=== PATIENT | female | born 1955 | race Caucasian/White ===

== ENCOUNTER 2019-08-30 06:52 | Inpatient (IN) | payer OTHER ==
[2019-08-14 11:14] LABS: URINE BILIRUBIN NEGATIVE (Negative); URINE BLOOD NEGATIVE (Negative); URINE CLARITY CLEAR; URINE COLOR YELLOW; URINE GLUCOSE-RANDOM* NEGATIVE (Negative); URINE KETONES NEGATIVE (Negative); URINE LEUKOCYTES-REFLEX 1+ (Negative); URINE NITRITE-REFLEX NEGATIVE (Negative); URINE PROTEIN (DIPSTICK) NEGATIVE (Negative); URINE SPECIFIC GRAVITY <= 1.005 (1.005-1.035); URINE UROBILINOGEN 0.2 E.U./dl (0.2-1.0)
[2019-08-14 11:15] LABS: HEMATOCRIT 41.7 % (37.0-47.0); HEMOGLOBIN 13.7 gm/dL (12.0-15.0); MCH 30.2 pg (26.0-34.0); MCHC 32.8 g/dL (28.0-37.0); MCV 92.2 fL (80.0-100.0); RBC 4.53 mil/uL (4.20-5.00); RDW 15.1 % (10.5-14.5); WBC 4.9 thou/uL (4.0-11.0)
[2019-08-14 11:26] LABS: ALBUMIN 3.9 g/dL (3.4-5.0); CALCIUM 8.8 mg/dL (8.5-10.1); CREATININE 0.7 mg/dL (0.6-1.0); POTASSIUM 4.2 mmol/L (3.5-5.1)
[2019-08-14 11:27] LABS: PROTIME 10.1 Seconds (9.3-11.4)
[2019-08-14 11:29] LABS: SQUAMOUS 4-10 Moderate /LPF (0-3)
[2019-08-14 11:30] LABS: BACTERIA-REFLEX 1-9 Few /HPF (None Seen); CASTS None Seen /LPF (None Seen); CRYSTALS None Seen /LPF (None Seen); URINE RBC None Seen /HPF (0-2); URINE WBC-REFLEX 0-5 Rare /HPF (0-5)
[~2019-08-30] VITALS: Ht 165.1 cm; Wt 109.3 kg
[~2019-08-30 06:52] MED LIST: ACETAMINOPHEN-1 EAC1 PO; ACETAMINOPHEN-CO5 ML PO; ACYCLOVIR 200200 MG PO; ALAVERT10 MG PO; ASPIRIN EC81 M1 PO; B-121000 MCG PO; BENEFIBER PO; BENEFIBER1 G2 PO; CALCIUM + VIT1 EACH PO; CALCIUM 600 WI1 EAC2 PO; CARVEDILOL12.5 MG PO; CENTRUM FLAVOR1 EAC1 PO; CHILDREN'S ASPI81 M1 PO; CLARITIN10 MG PO; COZAAR 25 MG TA25 M1 PO; FISH OIL GUMMI1 EAC1 PO; FOSAMAX 70 MG T70 MG PO; HYDROCODONE-ACE10 ML PO; KEFLEX250 M1 PO; LEVOTHYROXIN0.112 M1 PO; LEVOXYL137 MCG PO; LOPRESSOR25 PO; MELATONIN5 M6 PO; METOPROLOL SUCC25 M1 PO; MIRTAZAPINE15 M2 PO; MULTIVITAMINS PO; MULTIVITAMINS1 EACH PO; NYSTATIN1 EA10; OMEPRAZOLE40 MG PO; PRAVACHOL40 MG PO; PRAVASTATIN SOD20 MG PO; PROBIOTIC1 EAC7 PO; UREA CREAM 40%1 TUB1 TOP; VITAMIN B122500 MC1 PO; VITAMIN D1000 UNI1 PO; VITAMIN D22000 UNIT PO; VITAMIN D5000 UNIT PO; [UNRECOGNIZED DRUG - OTHER] TOP
[2019-08-30 12:00] VITALS: BP 157/82
--- NOTE | 2019-08-30 17:45 | NUR ---
PT RECEIVED TO RM 435 AT THIS TIME FROM REC RM ALERT AND IN NO ACUTE DISTRESS. PT SETTLED INTO BED AND ORIENTED TO THE UNIT. RT KNEE BRANDY DSNG DRY W/ POLAR POLINA IN PLACE. DENIES ANY PAIN AT THIS TIME. TAKING FLUIDS W/O NAUSEA. AT BEDIDE.
[2019-08-30 18:39] VITALS: BP 150/91
[2019-08-30 20:00] VITALS: BP 120/78
[2019-08-31 02:47] VITALS: BP 108/63
--- NOTE | 2019-08-31 04:24 | NUR ---
ADMISSION EDUCATION,HX AND ASSESSMENT COMPLETED.PT C/O PAIN ON HER KNEE,MANAGED WITH PO MED.DRSG ON HER HIP C/D/I WITH BRANDY DRSG.UP WITH I ASSIST AND WALKER TO BSC.POLAR POLINA IN PLACE,CHANGED NEEDED.PT RESTING ON HER BED AT THIS TIME.IVF AND IV ABX INFUSING ORDERED.FALL PRECAUTIONS IN PLACE,CALL LIGHT WITHIN REACH.
[2019-08-31 05:48] LABS: HEMATOCRIT 35.6 % (37.0-47.0); HEMOGLOBIN 11.8 gm/dL (12.0-15.0); MCH 30.6 pg (26.0-34.0); MCHC 33.2 g/dL (28.0-37.0); MCV 92.4 fL (80.0-100.0); RBC 3.86 mil/uL (4.20-5.00); RDW 14.8 % (10.5-14.5); WBC 9.6 thou/uL (4.0-11.0)
[2019-08-31 07:53] VITALS: BP 93/54
[2019-08-31] MEDS ORDERED: TRAMADOL 50 MG50 MG PO (12:00)
[2019-08-31] MEDS ORDERED: NEURONTIN 300300 M1 PO (12:02)
[2019-08-31] MEDS ORDERED: CHILDREN'S ASPI81 M1 PO (12:02)
--- NOTE | 2019-08-31 14:55 | NUR ---
PT ADMITTED RELATED TO RIGHT TOTAL KNEE. CM REVIEWED CHART AND SPOKE WITH CARE TEAM. PT INDICATED SHE RESIDES IN AN APARTMENT WITH HER SPOUSE WITH ELEVATOR ACCESS. PT INDICATED SHE HAD USED A CANE TO ASSIST WITH MOBILITY PROOF TECHNICIAN. PT INDICATED SHE HAS A QUAD CANE, FWW, WHEELCHAIR, AND BSC FOR HOME USE. PT INDICATED SHE HAD BEEN DOING OP PT AT [facility] PROOF TECHNICIAN BUT THAT SHE WANTS [facility] UPON ANTICPATED DC TOMORROW. REFERRAL WAS SENT AND [facility] CAN ACCEPT PT. CM TO FOLLOW INDICATED WITH DC PLANNING.
--- NOTE | 2019-08-31 15:00 | NUR ---
PT A&OX4, AMBULATES WITH ASSIST X1 AND WALKER. IV INFUSING FLUIDS IN R AC W/O COMPS. BRANDY DRSG AND POLAR PACK ARE INTACT TO R KNEE. TOLERATING TORDOL FOR PAIN.PLANS ARE FOR PT TO DC 09/01/19. CALL LIGHT W/I REACH.
--- NOTE | 2019-08-31 16:26 | NUR ---
FAXED REFERRAL TO [facility]. SPOKE WITH ANNA IN INTAKE. SHE REVIEWED REFERRAL AND SHE CAN ACCEPT AT [place]. DP TO FOLLOW.
[2019-08-31 17:21] VITALS: BP 134/64
[2019-08-31 18:37] VITALS: BP 90/47
--- NOTE | 2019-09-01 04:26 | NUR ---
ASSUMED PT CARE AT 1900. GIVEN PAIN MEDS FREQ TONIGHT. UP TO COMMODE, PT TOLERATED WELL. PT SALINE LOCKED AFTER FLUIDS FINISHED. RIGHT KNEE DRESSING LOOKS GOOD, INTACT AND DRY. PT SLEPT SOME THROUGHOUT NIGHT, NO OTHER SIGNIFICANT CHANGES.
[2019-09-01 06:07] LABS: HEMATOCRIT 33.2 % (37.0-47.0); HEMOGLOBIN 10.9 gm/dL (12.0-15.0); MCH 30.2 pg (26.0-34.0); MCHC 32.7 g/dL (28.0-37.0); MCV 92.5 fL (80.0-100.0); RBC 3.6 mil/uL (4.20-5.00); WBC 5.6 thou/uL (4.0-11.0)
[2019-09-01 07:20] VITALS: BP 108/56
[2019-09-01 09:53] VITALS: BP 108/56
[2019-09-01 13:18] VITALS: BP 108/56
--- NOTE | 2019-09-01 14:27 | NUR ---
PATIENT DISCHARGING TODAY 09/01/19 WITH [facility]. RAXED DC ORDERS AND SUMMARY. SPOKE WITH RAJENDRA IN INTAKE. SHE RECEIVED DC ORDERS AND WILL NOTIFY PATIENT OF TIME OF VISIT.
--- NOTE | 2019-09-01 14:30 | NUR ---
Assumed pt care at 7am.Pt in and out of chair to bsc with assist.Assessment completed.vss.Pt tolerated meds and diet.Pt c/o rt knee pain rated 10/10. Tramadol given twice this shift.Dr Mart academic assistant rounded on pt and dc order noted.Dc summary compile and reviewed with pt and spouse.Saline lock dc'd. At 1430,pt dc home in [place] with her spouse.
--- NOTE | 2019-09-06 14:33 | O ---
[facility] [place] [address] OPERATIVE REPORT Name: HAILEY ABERNATHY Og Room #: 435-P [facility] IN M.R.#: [id number] Admission: 08/30/19 Attend Phys: Eric Mart MD Discharge: 09/01/19 Date of : 51 Report #: [id number] THIS REPORT FOR: //name// CC: YFN PRICE Physician staff Eric Mart DATE OF SERVICE: 08/30/2019 PREOPERATIVE DIAGNOSES: 1. Right knee osteoarthritis. 2. Morbid obesity with a BMI of 40. POSTOPERATIVE DIAGNOSES: 1. Right knee osteoarthritis. 2. Morbid obesity with a BMI of 40. PROCEDURE: Right total knee arthroplasty using Navio robotic assistance. SURGEON: Eric Mart MD. SASH CLAMP OPERATOR: Cassy Payne PA-C. INDICATIONS FOR SASH CLAMP OPERATOR: Throughout the case, extensive retraction and manipulation of the knee was required. This was afforded to me by my assistant football coach. ANESTHESIA: LMA with an adductor canal block. IMPLANTS: Hernandez and Nephew size 4 Legion cobalt chrome posterior stabilized femur, size 4 tibia, size 11 highly constrained polyethylene, and size 32 patella. TOURNIQUET TIME: 60 minutes. ESTIMATED BLOOD LOSS: 25 mL. COMPLICATIONS: None. SPECIMENS: None. CONDITION UPON LEAVING THE OPERATING ROOM: Stable. INDICATIONS FOR PROCEDURE: The patient is a 64-year-old female with right knee osteoarthritis. She had failed conservative measures for this and after discussion with her, she elected for right total knee arthroplasty. [facility] [place] [address] OPERATIVE REPORT Name: HAILEY ABERNATHY Room #: 435-P [facility] IN M.R.#: [id number] Admission: 08/30/19 Attend Phys: Eric Mart MD Discharge: 09/01/19 Date of : 51 Report #: [id number] DESCRIPTION OF PROCEDURE: Risks, benefits, alternatives, and complications were discussed in detail with the patient including, but not limited to, risk of anesthesia, risk of damage to nerves, arteries, or blood vessels, risk for infection or bleeding, risk for continued knee pain, and need for reoperation. Informed consent was obtained from the patient. Right knee was appropriately marked in the preoperative holding area. IV Ancef was given for preoperative antibiotics. She was brought to the operating room and placed in the supine position on operating room table. LMA anesthesia was induced without complication. Tourniquet was placed on the right thigh. Right lower extremity was prepped and draped in normal sterile fashion. Timeout was performed, properly identifying the patient and procedure as well as the instrumentation and implants. All in the operating room were in agreement. Right lower extremity was exsanguinated and tourniquet was inflated. Tourniquet time was 60 minutes. Standard midline approach to knee was made with 10 blade through the skin. Dissection was taken down sharply to the fascia and deep flaps were developed medially and laterally. Fresh 10 blade was used to make a medial parapatellar arthrotomy and the knee was inspected. There was severe tricompartment osteoarthritis. ACL and PCL were removed sharply. Reference pins were placed in the femur and the tibia and the knee was digitally mapped using the Parudi robotic system. Intraoperative plan was made and we sized to a size 4 femur with the size 4 tibia and a 11 spacer. After acceptance of the intraoperative plan, the distal femoral cut was made with a Navio nimisha. The 4-in-1 cutting block for the size 4 femur was then placed on the distal femur and chamfer cuts were made. Attention was then turned to the tibia. Remainder of the menisci were removed with Bovie cautery. The tibial resection guide was pinned in place using the Navio for placement and tibial resection was made. After this, flexion and extension gaps were checked and found to have good balance in flexion and extension both medially and laterally with the 11 spacer. The tibia was sized and found to be a size 4. Size 4 tibial trial was placed and pinned and punched. Size 4 femoral trial was placed and box cut was made. This was then trialed with a size 11 polyethylene. Knee was taken through range of motion and found to have a moderate laxity laterally in flexion and it was felt we can make up for this with a constrained implant. After this, 9 mm was resected from the posterior surface of the patella and a size 32 patellar trial button was placed. Knee was taken through range of motion, found to be stable, and found to have good patellar tracking. Trial components were removed. Bony ends were thoroughly irrigated with normal saline. A final size 4 tibia, a size 4 Legion cobalt chrome posterior stabilized femur, and a size 32 patella were cemented in place using standard cementation techniques. While the cement cured, a periarticular injection consisting of morphine, ropivacaine, epinephrine, and Toradol was placed around the knee joint capsule. After the cement cured, tourniquet was deflated. Hemostasis was obtained with Bovie cautery. A final size 11 constrained polyethylene was placed. A gram of vancomycin was placed deep in the joint. The fascia was closed with 0 Vicryl, skin was closed with 2-0 Vicryl and skin staple, and a BRANDY dressing was [address] [address] OPERATIVE REPORT Name: HAILEY ABERNATHY Room #: 435-P [facility] IN M.R.#: [id number] Admission: 08/30/19 Attend Phys: Eric Mart MD Discharge: 09/01/19 Date of : 51 Report #: [id number] applied. The patient tolerated this procedure well and went to recovery room under care of anesthesia postoperatively. <ELECTRONICALLY SIGNED> By: Eric Mart MD 09/06/19 1433 1611 03 Eric Mart MD /nt
== END 2019-09-01 14:30 | disposition home health service (06) | DRG 470 ==
LOC: PRE 06:52 → 4S 10:22 → TBA 10:22 → PRE 10:24 → TBA 16:01 → 4S 18:37 → ENTRNSPT 09-01 14:38 → EDTRNSPTSTS 09-01 14:39
PROVIDERS: ADMIT Orthopaedic Surgery
PROC: 0SRC069 Replacement of Right Knee Joint with Oxidized Zirconium on Polyethylene Synthetic Substitute, Cemented, Open Approach (ICD-10-PCS; principal; 2019-08-30)
PROC: 8E0Y0CZ Robotic Assisted Procedure of Lower Extremity, Open Approach (ICD-10-PCS; principal; 2019-08-30)
DX: M17.11 Unilateral primary osteoarthritis, right knee (principal); Z68.41 Body mass index [BMI] 40.0-44.9, adult; E66.01 Morbid (severe) obesity due to excess calories; I10 Essential (primary) hypertension; E78.5 Hyperlipidemia, unspecified; K21.9 Gastro-esophageal reflux disease without esophagitis; G62.9 Polyneuropathy, unspecified; G89.29 Other chronic pain; Z88.2 Allergy status to sulfonamides; Z88.8 Allergy status to other drugs, medicaments and biological substances; Z88.6 Allergy status to analgesic agent; Z91.041 Radiographic dye allergy status
CPT/HCPCS: 10102; 50010; 50101; 50415; 50954; 51130; 51225; 51320; 51412; 52001; 52282; 53000; 53078; 53364; 56527; 56528; 57095; 57103; 57110; 57127; 57180; 62110; 62900; 64039; 64043; 70005

== ENCOUNTER → 2020-04-17 | Outpatient (CLI) | payer OTHER ==
[~2020-04-17] MED LIST changes: +ALCORTIN A GEL48 GM TOP; +KETOCONAZOLE15 GM TOP; +LEVOXYL150 MCG PO; +NEURONTIN 300300 M1 PO; +NEURONTIN 300M300 M2 PO; +PERIDEX15 ML SWISH&SPIT; +TRAMADOL 50 MG50 MG PO
== END ==
LOC: LAB 08:00
PROVIDERS: ATTEND Student in an Organized Health Care Education/Training Program
DX: Z01.812 Encounter for preprocedural laboratory examination (principal); Z11.59 Encounter for screening for other viral diseases

== ENCOUNTER 2020-04-22 11:21 | Inpatient (IN) | payer OTHER ==
[2020-04-17 14:14] LABS: URINE BILIRUBIN NEGATIVE (Negative); URINE BLOOD NEGATIVE (Negative); URINE CLARITY CLEAR; URINE COLOR YELLOW; URINE GLUCOSE-RANDOM* NEGATIVE (Negative); URINE KETONES NEGATIVE (Negative); URINE LEUKOCYTES-REFLEX TRACE (Negative); URINE NITRITE-REFLEX NEGATIVE (Negative); URINE PROTEIN (DIPSTICK) NEGATIVE (Negative); URINE SPECIFIC GRAVITY 1.015 (1.005-1.035); URINE UROBILINOGEN 0.2 E.U./dl (0.2-1.0)
[2020-04-17 14:15] LABS: HEMATOCRIT 38.3 % (37.0-47.0); HEMOGLOBIN 12.6 gm/dL (12.0-15.0); MCH 29.2 pg (26.0-34.0); MCV 88.7 fL (80.0-100.0); RBC 4.32 mil/uL (4.20-5.00); RDW 14.4 % (10.5-14.5); WBC 4.5 thou/uL (4.0-11.0)
[2020-04-17 14:24] LABS: ALBUMIN 3.8 g/dL (3.4-5.0); CALCIUM 8.6 mg/dL (8.5-10.1); CREATININE 0.7 mg/dL (0.6-1.0); POTASSIUM 4.2 mmol/L (3.5-5.1)
[2020-04-17 14:25] LABS: PROTIME 10.1 Seconds (9.3-11.4)
[~2020-04-22] VITALS: Ht 165.1 cm; Wt 104.3 kg
--- NOTE | ~2020-04-22 | O ---
[facility] [place] [address] [place] [address] OPERATIVE REPORT Name: HAILEY ABERNATHY Room #: 150-2 ADM IN M.R.#: [id number] Admission: 04/22/20 Attend Phys: Eric Mart MD Discharge: Date of : 51 Report #: [id number] THIS REPORT FOR: cc: YFN PRICE Physician not on staff Eric Mart MD ~ CC: YFN PRICE Physician staff Eric Mart DATE OF SERVICE: 04/22/2020 PREOPERATIVE DIAGNOSIS: Left knee osteoarthritis. POSTOPERATIVE DIAGNOSIS: Left knee osteoarthritis. PROCEDURE: Left total knee arthroplasty using Navio robotic surveyor's assistant. SURGEON: Eric Mart MD. MEAT STRINGER: Cassy Payne PA-C. INDICATIONS FOR MEAT STRINGER: Throughout the case, extensive retraction and manipulation of the knee was required. This was afforded to me by my surveyor's assistant. ANESTHESIA: LMA with adductor canal block. IMPLANTS: Hernandez and Nephew size 4 Journey II BCS cobalt chrome femur, size 3 tibia, size 10 polyethylene and size 32 patella. TOURNIQUET TIME: 53 minutes. ESTIMATED BLOOD LOSS: 50 mL. COMPLICATIONS: None. SPECIMENS: None. CONDITION UPON LEAVING THE OPERATING ROOM: Stable. INDICATIONS FOR PROCEDURE: The patient is a 64-year-old female with left knee osteoarthritis. She had failed conservative measures for this and after discussion with her, she elected for left total knee arthroplasty. DESCRIPTION OF PROCEDURE: Risks, benefits, alternatives, complications were discussed in detail with the patient including but not limited to risk of [facility] [address] [place] [address] OPERATIVE REPORT Name: HAILEY ABERNATHY Room #: 150-2 ADM IN M.R.#: [id number] Admission: 04/22/20 Attend Phys: Eric Mart MD Discharge: Date of : 51 Report #: [id number] anesthesia, risk of damage to nerves, arteries, blood vessels, risk for infection, bleeding, risk for continued knee pain, need for reoperation. Informed consent was obtained from the patient. Left knee was appropriately marked in the preoperative holding area. IV Ancef was given for preoperative antibiotics. She was brought to the operating room and placed in the supine position on the operating room table. LMA anesthesia was induced without complication. Tourniquet was placed on the left thigh. Left lower extremity was prepped and draped in normal sterile fashion. Timeout was performed properly identifying the patient, procedure as well as the instrumentation and implants. All in the operating room were in agreement. Left lower extremity was exsanguinated, tourniquet was inflated. Tourniquet time was 53 minutes. Standard midline approach to the knee was made with #10 blade through the skin. Dissection was taken down sharply to the fascia and deep flaps were developed medially and laterally. Fresh #10 blade was used to make a medial parapatellar arthrotomy and the knee was inspected. There was severe tricompartmental osteoarthritis. ACL and PCL were removed sharply. Reference pins were placed in the femur and the tibia and the knee was digitally mapped using the FloTime robotic system. Intraoperative plan was made and we sized the size 4 femur with a size 3 tibia and spacer. After acceptance of the intraoperative plan, the distal femoral cut was made with a Navio nimisha. Distal femoral cutting block was pinned in place and then the chamfer cuts were made. Attention was turned to the tibia. Remainder of the menisci removed with Bovie cautery. Tibial resection guide was pinned in place using the Navio for positioning and tibial resection was made. After this, flexion and extension gaps were checked and found to have good balance in flexion and extension both medially and laterally. Tibia was sized, found to be a size 3. A size 3 tibial trial was placed, pinned and punched. A size 4 femoral trial was placed and the box cut was made. This was then trialed with a size 10 polyethylene. Knee was taken through range of motion, found to be stable, found to have 1-2 mm of laxity medially and laterally, both digitally as well as manually. A 5 mm was resected from the posterior surface of the patella and a size 32 patellar trial button was placed. Knee was taken through range of motion, found to be stable, found to have good patellar tracking. Trial components were removed. Bony ends were thoroughly irrigated with normal saline. A final size 3 tibia, size 4 Journey II BCS cobalt chrome femur and a size 32 patella were cemented in place using standard cementation techniques. While the cement cured, a periarticular injection consisting of morphine, ropivacaine, epinephrine and Toradol was placed around the knee joint capsule. After the cement cured, the tourniquet was deflated. Hemostasis was obtained with Bovie cautery. Final size 10 polyethylene was placed. A gram of vancomycin was placed deep in the joint. Fascia was closed with 0 Vicryl, skin was closed with 2-0 Vicryl, skin staple and a BRANDY dressing [facility] [address] [place] [address] OPERATIVE REPORT Name: HAILEY ABERNATHY Room #: 150-2 [facility] IN M.R.#: [id number] Admission: 04/22/20 Attend Phys: Eric Mart MD Discharge: Date of : 51 Report #: [id number] was applied. The patient tolerated this procedure well and went to the recovery room under care of anesthesia postoperatively. By: [id number] Eric Mart MD /nt
[2020-04-22 13:10] VITALS: BP 172/81
[2020-04-22 18:36] VITALS: BP 147/84
[2020-04-22 21:08] VITALS: BP 166/71
--- NOTE | 2020-04-23 01:51 | NUR ---
ASSUMED PT CARE AT APPROX 1900.PT ALERT AND PLEASANT.ADMISSION HX,EDUCATION AND ASSESSMENT COMPLETED.PT DENIED PAIN.DRGS ON HER L KNEE C/D/I WITH POLAR PACK,SCD AND CONCEPCIÓN HOSE IN PLACE.PT EDUCATED ON HOW TO USE HER INCENTIVE SPIROMETER.GUZMAN CATH TO DD.PT ON 2L/NC FOR COMFORT.FIRST DOSE OF ABX ADMINISTERED.PT SLEEPING ON HER BED AT THOIS TIME.FALL PRECAUTIONS IN PLACE,CALL LIGHT WITHIN REACH.
[2020-04-23 06:46] LABS: HEMATOCRIT 37.2 % (37.0-47.0); HEMOGLOBIN 12.3 gm/dL (12.0-15.0); MCH 29.1 pg (26.0-34.0); MCV 88.3 fL (80.0-100.0); RBC 4.21 mil/uL (4.20-5.00); RDW 14.1 % (10.5-14.5); WBC 8.3 thou/uL (4.0-11.0)
[2020-04-23 08:31] VITALS: BP 108/56
[2020-04-23 09:28] VITALS: BP 108/56
--- NOTE | 2020-04-23 14:23 | NUR ---
ASSESSMENT: CM REVIEWED CHART AND SPOKE WITH PATIENT. PT IS ALERT AND ORIENTED X4. PT IS HERE DUE TO SURGERY ON LEFT KNEE. PT IS HAVING ISSUES WITH URINATION POST SURGERY. PT REPORTS SHE LIVES IN AN APT WITH THREE OTHER PEOPLE AND HAS ELEVATOR ACCESS. PT REPORTS SHE HAS A CANE AT HOME FOR AMBULATION AND ALSO HAS A WALKER. PT REPORTS HAVING [facility] IN THE PAST AND REPORTS WANTING TO USE THEM AGAIN. CONSULT RECEIVED FOR HH ARRANGEMENT AT DISCHARGE. REFERRAL SENT TO [facility]. PLANS OF POSSIBLE DISCHARGE TOMORROW WITH HH. PT REPORTS HER WORKS THE [employer] SO IF SHE DISCHARGES TOMORROW HE WILL BE UNABLE TO GET HER UNTIL THE AFTERNOON. CM WILL CONTINUE TO FOLLOW.
[2020-04-23 14:42] VITALS: BP 108/56
[2020-04-23 17:45] VITALS: BP 115/54
[2020-04-23 22:03] VITALS: BP 91/33
--- NOTE | 2020-04-23 23:30 | NUR ---
PT CARE ASSUMED AT 0700. A&Ox4. PT UP WITH PT TO THE RECLINER. GUZMAN REMOVED. IV PATENT WITH NO REDNESS OR EDEMA, IV FLUIDS INFUSING. PT TOLERATING PAIN WELL WITH PAIN MEDICATION ON BOARD. BRANDY DRESSING INTACT. POLAR PACK/SCD'S/CONCEPCIÓN HOSES IN PLACE. EDUCATION GIVEN ON BRANDY DRESSING AND POLAR PACK. INCENTIVE SPIROMETER ENCOURAGE AND PT USED THROUGHOUT THE DAY. PT WAS NOT ABLE TO URINATE AFTER GUZMAN REMOVAL. BLADDER SCANNED 193ML PRESENT. MD INFORMED. PT WAS ABLE TO URINATE ON HER OWN AT 1700. 350ML OUT. NO N/V PRESENT. FALL PROTOCOLL IN PLACE. CALL LIGHT IN REACH. WILL CONTINUE TO MONITOR. REPORT GIVEN TO ABAD ADEN
[2020-04-24 00:27] VITALS: BP 93/42
--- NOTE | 2020-04-24 05:49 | NUR ---
ASSUMED PT CARE AT 1940. PT IS A&O X4. PT IS UP WITH WALKER STANDBY WITH GAITBELT. PT TOOK MEDS PO. PT IS PLEASANT. PT CALLS OUT APPROPRIATELY. PT MOVES FROM BED TO CHAIR. PT IV IS PATENT WITH FLUIDS RUNNING. ORIGINAL DRESSING IN PLACE. ICE IN POLAR PACK REPLACED. PT VOIDING.PT RESTING IN ROOM.
[2020-04-24 06:31] LABS: HEMOGLOBIN 10.5 gm/dL (12.0-15.0); MCH 29.1 pg (26.0-34.0); MCHC 32.7 g/dL (28.0-37.0); MCV 89.1 fL (80.0-100.0); RBC 3.59 mil/uL (4.20-5.00); RDW 14.5 % (10.5-14.5); WBC 5.1 thou/uL (4.0-11.0)
[2020-04-24 07:50] VITALS: BP 119/57
--- NOTE | 2020-04-24 12:00 | NUR ---
PT CARE ASSUMED AT 0700.A&Ox4. PT UP IN THE RECLINER WITH NO COMPLAINTS OF PAIN. PAIN MANAGED WELL WITH PAIN MEDICATION ON BOARD. PATIENT CLEARED BY PT TO GO HOME. IV PATENT WITH NO REDNESS OR EDEMA, FLUIDS INFUSING. PT DOES NOT HAVE ANY FURTHER COMPLAINTS OF URINATING. CLEARED BY PT TO GO HOME WITH HOME HEALTH. INFORMED AND WAITING ON DISCHARGE ORDERS. BRANDY DRESSING/POLAR PACK INTACT AND IN PLACE. CONCEPCIÓN HOSES IN PLACE. FALL PROTOCOL IN PLACE. CALL LIGHT IN REACH. WILL CONTINUE TO MONITOR.
[2020-04-24 12:35] VITALS: BP 108/56
--- NOTE | 2020-04-24 13:16 | NUR ---
ON-GOING ASSESSMENT: PT HAS ORDERS TO LEAVE TODAY WITH HOME HEALTH. [facility] ACC[facility]PTED PT FOR HH SERVICES AND CM FAXED D/C ORDERS AND SUMMARY TO THEM, CONFIRMED THEY RECEIVED IT. CM ALSO NOTIFIED THEM OF DISCHARGE. PTS IS PROVIDING TRANSPORTATION HOME.
== END 2020-04-24 13:48 | disposition home health service (06) | DRG 470 ==
LOC: PRE 11:21 → 4S 12:21 → TBA 12:21 → PRE 13:07 → 4S 17:06
PROVIDERS: ADMIT Orthopaedic Surgery; ATTEND Orthopaedic Surgery
PROC: 0SRD0J9 Replacement of Left Knee Joint with Synthetic Substitute, Cemented, Open Approach (ICD-10-PCS; principal; 2020-04-22)
PROC: 8E0Y0CZ Robotic Assisted Procedure of Lower Extremity, Open Approach (ICD-10-PCS; principal; 2020-04-22)
PROC: 3E0T3BZ Introduction of Anesthetic Agent into Peripheral Nerves and Plexi, Percutaneous Approach (ICD-10-PCS; principal; 2020-04-22)
DX: M17.12 Unilateral primary osteoarthritis, left knee (principal); Z88.6 Allergy status to analgesic agent; Z88.1 Allergy status to other antibiotic agents; Z88.5 Allergy status to narcotic agent; Z88.8 Allergy status to other drugs, medicaments and biological substances; Z91.048 Other nonmedicinal substance allergy status; Z90.710 Acquired absence of both cervix and uterus; Z90.49 Acquired absence of other specified parts of digestive tract; Z85.3 Personal history of malignant neoplasm of breast
CPT/HCPCS: 10102; 50010; 50415; 50954; 51130; 51225; 51320; 51412; 52001; 52282; 53000; 53078; 53370; 56527; 56528; 57095; 57103; 57110; 57127; 57180

== ENCOUNTER → 2021-02-12 | Outpatient (CLI) | payer OTHER ==
[~2021-02-12] MED LIST changes: +COMBIVENT RESPIM4 GM INH; +ELIQUIS5 MG PO; +PERCOCET 7.5-31 EAC1 PO
== END ==
LOC: LAB 13:08
PROVIDERS: Orthopaedic Surgery Foot and Ankle Surgery; ATTEND Student in an Organized Health Care Education/Training Program
DX: Z01.812 Encounter for preprocedural laboratory examination (principal); Z20.822 Contact with and (suspected) exposure to COVID-19

== ENCOUNTER 2021-02-14 06:05 | Day surgery (SDC) | payer OTHER ==
[~2021-02-14] VITALS: Ht 167.6 cm; Wt 112.9 kg
[~2021-02-14 06:05] MED LIST changes: -PERCOCET 7.5-31 EAC1 PO
[2021-02-14 07:35] VITALS: BP 128/67
[2021-02-14] MEDS ORDERED: PERCOCET 7.5-31 EAC1 PO (09:08)
[2021-02-14 09:18] VITALS: BP 128/67
--- NOTE | 2021-02-19 15:58 | O ---
[facility] [place] [address] OPERATIVE REPORT Name: HAILEY ABERNATHY Room #: DEP [facility].#: [id number] Admission: 02/14/21 Attend Phys: Daniel Monterroso MD Discharge: 02/14/21 Date of : 51 Report #: [id number] THIS REPORT FOR: cc: YFN PRICE [facility] - Family physician unknown Daniel Monterroso MD ~ DOC #: [id number] Daniel Monterroso MD DATE OF SERVICE: 02/14/2021 PREOPERATIVE DIAGNOSES: 1. Left ankle impingement, status post left total ankle arthroplasty. 2. Left ankle loose bodies. POSTOPERATIVE DIAGNOSIS: 1. Left ankle impingement, status post left total ankle arthroplasty. 2. Left ankle loose bodies. PROCEDURES: 1. Left ankle anterior and posterior osteophyte excision. 2. Left ankle loose body excision and debridement. 3. Left ankle 4-0 cannulated screw placement prophylactic. SURGEON: Daniel Monterroso MD TRAFFIC COUNTER: None. ANESTHESIA: General. ESTIMATED BLOOD LOSS: 20 mL. DRAINS: No drains. TOURNIQUET TIME: One hour. DESCRIPTION OF PROCEDURE: The patient was brought to the operating room where she was placed under general anesthesia. Once under adequate general anesthesia, her left lower extremity was prepped and draped in a sterile manner. The extremity was elevated, exsanguinated, tourniquet placed 300 mmHg. A medial incision to the patient's previous scar was then made. This was dissected down through the soft tissue to the distal tibia and tibiotalar joint. This is dissected then posteriorly, dissecting along the bone and retracting the neurovascular bundle posteriorly. Exposure was made of the posterior osteophytes. These were then resected utilizing an osteotome and a rongeur to completely remove. This was verified under fluoroscopy. We then dissected anteriorly and made an incision anteriorly, exposing the ankle joint and [address] [address] OPERATIVE REPORT Name: HAILEY ABERNATHY Og Room #: DEP [facility] M..#: [id number] Admission: 02/14/21 Attend Phys: aDniel Monterroso MD Discharge: 02/14/21 Date of : 51 Report #: [id number] incision was made in the joint capsule. The anteromedial osteophytes were exposed and resected utilizing a rongeur. Similarly, the loose bodies in the medial joint were resected utilizing an osteotome as well. Improved range of motion through the ankle joint was then achieved in dorsiflexion and plantar flexion. The wounds were then irrigated copiously and closed with 2-0 Vicryl in the capsular layer, 2-0 Vicryl in subcutaneous tissues and thalia were used for the skin. The wounds were dressed with Xeroform, 4 x 4's, and sterile soft compressive dressing was placed. Tourniquet was let down at approximately 1 hour. Toes were pink and warm. Good capillary refill. There were no complications from the procedure. The patient tolerated the procedure well and was to the recovery room without incident. MD HALEY Hilliard/STEPHEN <ELECTRONICALLY SIGNED> By: Danile Monterroso MD 02/19/21 1558 0815 [id number] Daniel Monterroso MD /nt
== END 2021-02-14 10:00 | disposition home or self-care (01) ==
LOC: OR 06:05 → TBA 06:09 → OR 10:00
PROVIDERS: ATTEND Orthopaedic Surgery Foot and Ankle Surgery
DX: M25.872 Other specified joint disorders, left ankle and foot (principal); M24.072 Loose body in left ankle; Z96.662 Presence of left artificial ankle joint; I10 Essential (primary) hypertension; E78.5 Hyperlipidemia, unspecified; K21.9 Gastro-esophageal reflux disease without esophagitis; G47.30 Sleep apnea, unspecified; E03.9 Hypothyroidism, unspecified; E78.00 Pure hypercholesterolemia, unspecified; Z98.890 Other specified postprocedural states; Z79.899 Other long term (current) drug therapy; Z85.3 Personal history of malignant neoplasm of breast; Z90.710 Acquired absence of both cervix and uterus; Z98.84 Bariatric surgery status; Z96.651 Presence of right artificial knee joint; Z88.2 Allergy status to sulfonamides; Z88.8 Allergy status to other drugs, medicaments and biological substances; Z79.01 Long term (current) use of anticoagulants
CPT/HCPCS: 50010; 50101; 50386; 51122; 51412; 56524; 57091; 57181; 62110; 62900; 70005